=== PATIENT | female | born 1985 | race Hispanic/Latino ===

== ENCOUNTER 2022-10-14 20:16 | Inpatient (IN) | payer SELFPAY ==
[~2022-10-14 20:16] MED LIST: Iopamidol 300 61% 100 ML VIAL FS ONE
[2022-10-14 20:51] LABS: Hemoglobin 4.9 g/dL (12.0-15.5)
[2022-10-14 20:53] LABS: #Eosinphils 0.1 10x3/uL (0.0-0.5); #Monocytes 0.3 10x3/uL (0.0-1.1); #Neutrophils 2.2 10x3/uL (1.5-8.4); %Basophils 0.7 % (0.0-2.0); %Eosinophils 2.3 % (0.0-6.0); %Lymphocytes 38.8 % (18.0-47.0); %Monocytes 6.9 % (0.0-10.0); %Neutrophils 50.6 % (40.0-75.0); Mean Corpuscular HGB CONC 24.6 g/dL (32.0-36.0); Mean Corpuscular Volume 56.7 fl (81.6-98.3); Platelet Count 295 10x3/uL (150-450); RBC Distribution Width 22.6 % (11.5-14.5); Red Blood Cell (RBC) Count 3.51 10x6/uL (3.90-5.03); White Blood Cell (WBC) Count 4.4 10x3/uL (3.5-10.5)
[2022-10-14 21:19] LABS: ALT (SGPT) 10 U/L (8-55); AST (SGOT) 13 U/L (5-34); Albumin 4.4 g/dL (3.5-5.0); Alkaline Phosphatase 68 U/L (40-110); Anion Gap 13 mmol/L (10-20); BUN (Urea Nitrogen) 6 mg/dL (7.0-18.7); Bilirubin, Total 0.6 mg/dL (0.2-1.2); Calc. Creatinine Clearance 0 mL/min (70-130); Carbon Dioxide 22 mmol/L (22-29); Chloride 107 mmol/L (98-107); Estimated GFR 116; Globulin 3.5 g/dL (2.4-3.5); Glucose 105 mg/dL (70-105); Potassium 3.7 mmol/L (3.5-5.1); Protein, Total 7.9 g/dL (6.0-8.3); Sodium 138 mmol/L (136-145)
[2022-10-14 21:43] LABS: Anisocytosis SLIGHT = 6-15 cells (100X) (0-5/hpf)
[2022-10-14 21:44] LABS: Elliptocytes SLIGHT = 2-5 cells (100X) (0-1/hpf); Hypochromia MODERATE=16-30 cells (100X) (0-5/hpf); Macrocytosis SLIGHT = 6-15 cells (100X) (0-5/hpf); Microcytosis MODERATE=15-30 cells (100X) (0-5/hpf); Poikilocytosis SLIGHT = 6-15 cells (100X) (0-5/hpf); Tear Drops SLIGHT = 2-5 cells (100X) (0-1/hpf)
[2022-10-14 21:45] LABS: Reflex for Review?? YES
[2022-10-14 22:11] LABS: BHCG - Serum Negative (NEGATIVE); Pregs Control Background? CLEAR/WHITE (CLR/WHITE); Pregs Control Bar Appear? YES (CONTROL BAR)
[2022-10-14 23:15] LABS: Iron 13 ug/dL (50-170); Iron Binding Capacity, Total 446 mcg/dL (265-497)
[2022-10-14] MEDS ORDERED: Ondansetron PF 4 MG/2 ML Vial IVP PRN (23:20)
[2022-10-14] MEDS ORDERED: Acetaminophen 325 MG TAB PO PRN (23:20)
[2022-10-15 00:17] VITALS: BMI 25.8
[2022-10-15] MEDS: Pantoprazole 40 MG VIAL IVP SCH ×3 (00:51→23:30)
[2022-10-15] MEDS: Dextrose 5%-Lactated Ringers 1,000 ML IV SCH ×2 (00:51→20:10)
[2022-10-15 05:10] LABS: #Eosinphils 0.1 10x3/uL (0.0-0.5); #Monocytes 0.3 10x3/uL (0.0-1.1); #Neutrophils 2.5 10x3/uL (1.5-8.4); %Basophils 0.7 % (0.0-2.0); %Eosinophils 2.2 % (0.0-6.0); %Monocytes 5.4 % (0.0-10.0); %Neutrophils 54.3 % (40.0-75.0); Mean Corpuscular HGB CONC 27.7 g/dL (32.0-36.0); Mean Corpuscular Hemoglobin 17.4 pg (27.0-33.0); Mean Corpuscular Volume 62.8 fl (81.6-98.3); Platelet Count 242 10x3/uL (150-450); RBC Distribution Width 27.8 % (11.5-14.5); Red Blood Cell (RBC) Count 4.03 10x6/uL (3.90-5.03); White Blood Cell (WBC) Count 4.6 10x3/uL (3.5-10.5)
[2022-10-15 05:11] LABS: INR-International Normal Ratio 1.2; PTT 24.6 sec (22.0-33.0); Prothrombin Time 12.6 sec (9.5-12.1)
[2022-10-15 05:24] LABS: ALT (SGPT) 12 U/L (8-55); AST (SGOT) 37 U/L (5-34); Alkaline Phosphatase 57 U/L (40-110); Anion Gap 13 mmol/L (10-20); BUN (Urea Nitrogen) 7 mg/dL (7.0-18.7); Bilirubin, Total 1.9 mg/dL (0.2-1.2); Calc. Creatinine Clearance 154 mL/min (70-130); Calcium 8.6 mg/dL (7.8-10.44); Carbon Dioxide 19 mmol/L (22-29); Chloride 107 mmol/L (98-107); Estimated GFR 120; Globulin 3.3 g/dL (2.4-3.5); Glucose 105 mg/dL (70-105); Potassium 4.4 mmol/L (3.5-5.1); Protein, Total 7.3 g/dL (6.0-8.3); Sodium 135 mmol/L (136-145)
[2022-10-15 05:31] LABS: Platelet Adequacy Comment Appears Adequate
[2022-10-15 05:33] LABS: Elliptocytes SLIGHT = 2-5 cells (100X) (0-1/hpf); Hypochromia MODERATE=16-30 cells (100X) (0-5/hpf); Macrocytosis SLIGHT = 6-15 cells (100X) (0-5/hpf); Microcytosis MODERATE=15-30 cells (100X) (0-5/hpf)
[2022-10-15 05:34] LABS: Anisocytosis SLIGHT = 6-15 cells (100X) (0-5/hpf)
[2022-10-15 06:32] LABS: Bilirubin Neg (Negative); Blood, Urine 10 (Negative); Clarity Clear (Clear); Glucose, Urine (Dipstick) Normal (Negative); Ketone, Urine Negative (Negative); Leukocyte Negative (Negative); Nitrite Negative (Negative); Protein, Urine (Dipstick) Negative (Neg-Trace); Urobilinogen Normal mg/dL (Less than 2)
[2022-10-15 06:46] LABS: RBC/HPF 0-3 HPF (0-3); WBC/HPF 0-3 HPF (0-3)
[2022-10-15 06:47] LABS: Bacteria/HPF None Seen HPF (None Seen); Squamous Epithelial 0-3 HPF (0-3)
[2022-10-15 11:32] LABS: #Eosinphils 0.1 10x3/uL (0.0-0.5); #Monocytes 0.3 10x3/uL (0.0-1.1); %Basophils 0.8 % (0.0-2.0); %Lymphocytes 30.6 % (18.0-47.0); %Monocytes 5.4 % (0.0-10.0); %Neutrophils 60.2 % (40.0-75.0); Hemoglobin 8.3 g/dL (12.0-15.5); Mean Corpuscular HGB CONC 28.4 g/dL (32.0-36.0); Mean Corpuscular Hemoglobin 18.4 pg (27.0-33.0); Mean Corpuscular Volume 64.7 fl (81.6-98.3); Platelet Count 242 10x3/uL (150-450); Red Blood Cell (RBC) Count 4.51 10x6/uL (3.90-5.03)
[2022-10-15] MEDS ORDERED: GoLYTELY 4,000 ml Bottle PO SCH (20:00)
[2022-10-16 04:44] LABS: ALT (SGPT) 14 U/L (8-55); AST (SGOT) 18 U/L (5-34); Albumin 4.2 g/dL (3.5-5.0); Alkaline Phosphatase 66 U/L (40-110); Anion Gap 14 mmol/L (10-20); BUN (Urea Nitrogen) 5 mg/dL (7.0-18.7); Bilirubin, Total 1.5 mg/dL (0.2-1.2); Calc. Creatinine Clearance 148 mL/min (70-130); Calcium 9.2 mg/dL (7.8-10.44); Carbon Dioxide 21 mmol/L (22-29); Chloride 106 mmol/L (98-107); Estimated GFR 119; Globulin 3.5 g/dL (2.4-3.5); Glucose 93 mg/dL (70-105); Potassium 3.8 mmol/L (3.5-5.1); Protein, Total 7.7 g/dL (6.0-8.3); Sodium 137 mmol/L (136-145)
[2022-10-16 04:58] LABS: #Basophils 0.1 10x3/uL (0.0-0.2); #Eosinphils 0.2 10x3/uL (0.0-0.5); #Monocytes 0.3 10x3/uL (0.0-1.1); #Neutrophils 3.2 10x3/uL (1.5-8.4); %Basophils 0.8 % (0.0-2.0); %Eosinophils 2.9 % (0.0-6.0); %Lymphocytes 37.1 % (18.0-47.0); %Monocytes 5.4 % (0.0-10.0); %Neutrophils 53.5 % (40.0-75.0); Hemoglobin 8.7 g/dL (12.0-15.5); Mean Corpuscular HGB CONC 28.2 g/dL (32.0-36.0); Mean Corpuscular Hemoglobin 18.5 pg (27.0-33.0); Mean Corpuscular Volume 65.4 fl (81.6-98.3); Platelet Count 253 10x3/uL (150-450); RBC Distribution Width 28.4 % (11.5-14.5); Red Blood Cell (RBC) Count 4.71 10x6/uL (3.90-5.03)
[2022-10-16 05:32] LABS: Anisocytosis SLIGHT = 6-15 cells (100X) (0-5/hpf); Elliptocytes SLIGHT = 2-5 cells (100X) (0-1/hpf); Hypochromia SLIGHT = 6-15 cells (100X) (0-5/hpf); Macrocytosis SLIGHT = 6-15 cells (100X) (0-5/hpf); Microcytosis SLIGHT = 6-15 cells (100X) (0-5/hpf); Platelet Adequacy Comment Appears Adequate
[2022-10-16] MEDS: Dextrose 5%-Lactated Ringers 1,000 ML IV SCH (10:17)
[2022-10-16] MEDS: Pantoprazole 40 MG VIAL IVP SCH (10:17)
[2022-10-16 12:35] VITALS: BP 155/90; TEMP 97.5
[2022-10-16] MEDS ORDERED: PROPOFOL 40 ML ONE (14:54)
[2022-10-16] MEDS ORDERED: Ondansetron PF 4 MG/2 ML Vial ONE (14:55)
[2022-10-16] MEDS ORDERED: Midazolam HCl 2 mg/2 ml Vial ONE (14:55)
[2022-10-16] MEDS ORDERED: PROPOFOL 20 ML ONE ×3 (15:36→16:24)
== END 2022-10-16 20:30 | disposition home or self-care (01) | DRG 812 ==
LOC: EDBD 20:16 → CSHERS 20:16 → CSHTELE 23:59 → OBSVTOIN 23:59
PROVIDERS: ADMIT Student in an Organized Health Care Education/Training Program; ATTEND Internal Medicine
PROC: 30233N1 Transfusion of Nonautologous Red Blood Cells into Peripheral Vein, Percutaneous Approach (ICD-10-PCS; 2022-10-14)
PROC: 0DJ08ZZ Inspection of Upper Intestinal Tract, Via Natural or Artificial Opening Endoscopic (ICD-10-PCS; principal; 2022-10-16)
PROC: 0DJD8ZZ Inspection of Lower Intestinal Tract, Via Natural or Artificial Opening Endoscopic (ICD-10-PCS; 2022-10-16)
DX: D50.9 Iron deficiency anemia, unspecified (principal); D62 Acute posthemorrhagic anemia; N92.1 Excessive and frequent menstruation with irregular cycle; K80.20 Calculus of gallbladder without cholecystitis without obstruction; K64.4 Residual hemorrhoidal skin tags; K64.8 Other hemorrhoids
CPT/HCPCS: 36415; 36430; 71045; 74177; 76705; 80053; 81001; 82248; 82274; 82728; 83540; 83550; 84484; 84703; 85025; 85060; 85610; 85652; 85730; 86140; 86850; 86900; 86901; 93005; C9113; J2250; J2405; J2704; P9016; Q9967